=== PATIENT | female | born 1980 | race Two or more races ===

== ENCOUNTER 2020-03-05 05:57 | Day surgery (SDC) | payer OTHER ==
[~2020-03-05 05:57] MED LIST: DELZICOL400 M1 PO; FOLIC ACID20 MG PO; MAXIMUM D3325 MCG PO; PRILOSEC OTC20 MG PO; TAMOXIFEN CITRA10 MG PO; ZYRTEC10 M3 PO
== END 2020-03-05 22:15 | disposition home or self-care (01) ==
LOC: CIR.AMB 05:57
PROVIDERS: ATTEND Surgery
DX: C50.912 Malignant neoplasm of unspecified site of left female breast (principal); N62 Hypertrophy of breast; Z20.828 Contact with and (suspected) exposure to other viral communicable diseases